=== PATIENT | female | born 1960 | race African-American/Black ===

== ENCOUNTER 2025-10-31 20:00 | Inpatient (IN) | payer MEDICAID, OTHER ==
[~2025-10-31] VITALS: Ht 160 cm; Wt 113.1 kg
[2025-10-31 20:05] VITALS: O2SAT 90
[2025-10-31 20:31] VITALS: RESP 29
[2025-10-31] MEDS: ALBUTEROL (0.083%) 2.5MG/3ML NEB HHN SCH (20:31)
[2025-10-31] MEDS: IPRATROPIUM BROMIDE (0.02%) 0.5MG/2.5ML NEB HHN SCH (20:31)
[2025-10-31 20:51] LABS: BASOPHILS % 0.4 % (0.0-2.0); EOSINOPHILS % 2.5 % (0.0-5.0); HEMATOCRIT. 38.9 % (36.0-48.0); HEMOGLOBIN. 12.6 g/dL (12.0-16.0); LYMPHOCYTES % 21.2 % (20.0-50.0); MEAN PLATELET VOLUME 8.7 fl (7.4-10.4); MONOCYTES % 8.3 % (2.0-8.0); NEUTROPHILS % 67.6 % (40.0-76.0); PLATELET 226 x1000/uL (130-400); RED BLOOD CELL COUNT 4.55 mill/uL (4.2-5.4); RED CELL DISTRIBUTION WIDTH 15.2 % (11.6-14.6)
[2025-10-31] MEDS: METHYLPREDNISOLONE SOD SUCC 125MG/2ML (ACT-O-VIAL) IV ONE (20:53)
[2025-10-31] MEDS: LABETALOL 5MG/ML 4ML INJ IV ONE (20:53)
[2025-10-31] MEDS: CEFTRIAXONE 1GM/50ML 50 ML IV ONE (20:53)
[2025-10-31 21:02] LABS: INR 1.0
[2025-10-31 21:05] LABS: CREATININE 1.1 mg/dL (0.6-1.0); UREA NITROGEN BLOOD 15 mg/dL (9-23)
[2025-10-31 21:06] LABS: PROTEIN TOTAL 6.4 g/dL (6.0-8.3); TROPONIN I HIGH SENSITIVITY 18 ng/L (3.0-34)
[2025-10-31 21:07] LABS: ASPARTATE AMINOTRANSFERASE 20 IU/L (<34); BILIRUBIN DIRECT < 0.1 mg/dL (<=3.0); BILIRUBIN TOTAL 0.4 mg/dL (0.1-1.0)
[2025-10-31] MEDS: AZITHROMYCIN 500MG/250ML 250 ML IV ONE (21:31)
[2025-10-31] MEDS: SODIUM CHLORIDE 0.9% 1,000 ML IV ONE (21:40)
[2025-10-31 22:12] LABS: INFLUENZA TYPE A Presumptive Negative (Pres. Neg.); INFLUENZA TYPE B Presumptive Negative (Pres. Neg.)
[2025-10-31 22:13] LABS: RESPIRATORY SYNCYTIAL VIRUS Not Detected (Not Detectd)
[2025-10-31] MEDS: HYDRALAZINE 20MG/ML VIAL IV ONE (23:15)
[2025-11-01] VITALS (13 sets, daily range): BP systolic 128–171; BP diastolic 60–84; PULSE 64–87; RESP 18–29; TEMP 36.7–36.9; O2SAT 96–99
[2025-11-01] MEDS ORDERED: DEXTROSE 50% WATER 50ML SYRINGE IV PRN ×2 (02:00→12:00)
[2025-11-01] MEDS: CLONIDINE 0.1MG TABLET PO ONE (05:50)
[2025-11-01] MEDS: HYDRALAZINE HCL 50MG TABLET PO SCH (05:53)
[2025-11-01] MEDS: BLOOD SUGAR DIAGNOSTIC STRIP TEST SCH (07:30)
[2025-11-01] MEDS: AZITHROMYCIN 500 MG TABLET PO SCH (08:51)
[2025-11-01] MEDS: AMLODIPINE 10MG TABLET PO SCH (08:53)
[2025-11-01] MEDS: LOSARTAN 50 MG TABLET PO SCH (08:53)
[2025-11-01] MEDS: ENOXAPARIN 30MG/0.3ML SYR SUBCUT SCH (08:54)
[2025-11-01] MEDS: INSULIN LISPRO 100 UNITS/ML SUBCUT SCH ×2 (08:57→12:50)
[2025-11-01] MEDS: INSULIN LISPRO 100 UNITS/ML SUBCUT NR (08:59)
[2025-11-01] MEDS ORDERED: AZITHROMYCIN 500MG/250ML 250 ML IV SCH (09:00)
[2025-11-01] MEDS: CLONIDINE 0.1MG TABLET PO PRN (09:10)
[2025-11-01] MEDS: INSULIN GLARGINE 100 UNITS/ML SUBCUT NR (11:06)
[2025-11-01 11:18] LABS: BASOPHILS % 0.1 % (0.0-2.0); EOSINOPHILS % 0.0 % (0.0-5.0); HEMATOCRIT. 36.5 % (36.0-48.0); HEMOGLOBIN. 11.9 g/dL (12.0-16.0); LYMPHOCYTES % 10.8 % (20.0-50.0); MEAN PLATELET VOLUME 9.1 fl (7.4-10.4); MONOCYTES % 2.3 % (2.0-8.0); NEUTROPHILS % 86.8 % (40.0-76.0); PLATELET 188 x1000/uL (130-400); RED BLOOD CELL COUNT 4.29 mill/uL (4.2-5.4); RED CELL DISTRIBUTION WIDTH 14.7 % (11.6-14.6)
[2025-11-01 11:24] LABS: CREATININE 1.2 mg/dL (0.6-1.0); TRIGLYCERIDE 39 mg/dL (0-150); UREA NITROGEN BLOOD 22 mg/dL (9-23)
[2025-11-01 11:25] LABS: ASPARTATE AMINOTRANSFERASE 10 IU/L (<34); LDL CHOLESTEROL 95 mg/dL (5-100); PROTEIN TOTAL 5.9 g/dL (6.0-8.3)
[2025-11-01 11:27] LABS: BILIRUBIN TOTAL 0.3 mg/dL (0.1-1.0)
[2025-11-01] MEDS ORDERED: IPRATROPIUM/ALBUTEROL 0.5-3(2.5)MG/3ML NEB HHN SCH (12:00)
[2025-11-01] MEDS ORDERED: BLOOD SUGAR DIAGNOSTIC STRIP TEST SCH (12:30)
[2025-11-01] MEDS: CEFTRIAXONE 1GM/50ML 50 ML IV SCH (21:57)
[2025-11-01] MEDS: INSULIN GLARGINE 100 UNITS/ML SUBCUT SCH (22:00)
[2025-11-02] VITALS (9 sets, daily range): BP systolic 113–164; BP diastolic 59–82; PULSE 52–73; RESP 17–22; TEMP 36.4–36.9; O2SAT 94–99
[2025-11-02] MEDS ORDERED: DEXTROSE 50% WATER 50ML SYRINGE IV PRN (08:30)
[2025-11-02] MEDS: BLOOD SUGAR DIAGNOSTIC STRIP TEST SCH (09:23)
[2025-11-02] MEDS: INSULIN LISPRO 100 UNITS/ML SUBCUT SCH (09:28)
== END 2025-11-02 13:45 | disposition left against medical advice (07) | DRG 139 ==
LOC: ER 20:00 → 5EST 21:24 → EDBEDREQTM 21:26 → EDBEDREQ 21:26 → ENRESERV 23:56
PROVIDERS: ADMIT Internal Medicine; ATTEND Internal Medicine
PROC: 5A09357 Assistance with Respiratory Ventilation, Less than 24 Consecutive Hours, Continuous Positive Airway Pressure (ICD-10-PCS; principal; 2025-10-31)
DX: J18.9 Pneumonia, unspecified organism (principal); J96.01 Acute respiratory failure with hypoxia; I16.1 Hypertensive emergency; J44.0 Chronic obstructive pulmonary disease with (acute) lower respiratory infection; E66.01 Morbid (severe) obesity due to excess calories; E11.22 Type 2 diabetes mellitus with diabetic chronic kidney disease; N18.30 Chronic kidney disease, stage 3 unspecified; E78.5 Hyperlipidemia, unspecified; F17.210 Nicotine dependence, cigarettes, uncomplicated; Z53.29 Procedure and treatment not carried out because of patient's decision for other reasons; Z71.6 Tobacco abuse counseling; Z79.4 Long term (current) use of insulin; Z90.49 Acquired absence of other specified parts of digestive tract; I13.10 Hypertensive heart and chronic kidney disease without heart failure, with stage 1 through stage 4 chronic kidney disease, or unspecified chronic kidney disease
CPT/HCPCS: 36415; 71045; 80048; 80053; 80061; 80076; 82010; 82962; 83036; 83605; 83735; 83880; 83930; 84145; 84484; 85025; 87420; 87426; 87804; 93005; 94070; 94640; 94660; 96365; 96375; 99291; J0360; J0456; J0696; J1650; J1815; J2919; J3490; J7030